=== PATIENT | male | born 1980 | race Caucasian/White ===

== ENCOUNTER 2021-03-30 14:25 | Emergency (ER) | payer OTHER, SELFPAY ==
[2021-03-30 14:31] VITALS: BP 161/98; PULSE 85; RESP 18; TEMP 37; O2SAT 97; BMI 30.1
--- NOTE | 2021-03-30 14:41 | ED_ITS ---
HPI - Wound/Laceration General: Chief Complaint: Wound/Laceration Stated Complaint: LIP INJURY Time Seen by Provider: 03/30/21 14:41 History of Present Illness: HPI narrative: Mr. Quintana is a 40-year-old gentleman without significant past medical history presents the emergency department due to lip laceration. He was referred from urgent care. Just prior to presenting to urgent care he was using a disc knife grinder and the disc broke and flung into his face. It hit isolated injury to his lip. He denies other traumatic injury. No concern over eye or head. He immediately had bleeding and applied direct pressure. He has otherwise been at his baseline health. He does have moderate intensity of pain associated with this which is aching and sharp in nature. He reports not wanting a tetanus update. No other significant changes in health, exacerbating, or relieving factors identified. Review of Systems General: Reports: 10 or more systems reviewed and unremarkable except in HPI and below Narrative: CONSTITUTIONAL: denies fever, fatigue, weakness EYES - denies pain, denies loss of vision EARS - denies ear issues. NOSE - denies congestion or rhinorrhea. THROAT - denies sore throat or difficulty swallowing. Facial laceration as noted in HPI. CARDIOVASCULAR - denies chest pain and palpitations RESPIRATORY - denies shortness of breath and cough GASTROINTESTINAL - denies abdominal pain, no nausea vomiting, no changes in bowel habits GENITOURINARY - denies dysuria or urinary frequency MUSCULOSKELETAL- denies deformity or pain SKIN - denies rashes or new changed skin lesions NEUROLOGIC - denies focal weakness or sensory changes HEMATOLOGIC/LYMPHATIC - denies easy bruising or lymphadenopathy. [facility] ED PFSH: Social History Smoking and tobacco status: never smoked Physical Exam Narrative: EXAM NARRATIVE: GENERAL/CONSTITUTIONAL - well-appearing. No acute distress. Eyes - PERRL, no conjunctival injection ENMT - Atraumatic external nose and ears. Moist mucous membranes. There is a slightly irregular laceration on the right lower lip. It approximately follows the vermilion border laterally towards the angle of the mouth not involving the angle. Additionally there is a laceration on the inside of the lip slightly more superior along the vermilion. After probing there is no definitive connection, it is possible that external laceration is secondary to reported knife grinder and internal is secondary to teeth. Generally poor dentition. NECK - supple. trachea midline CARDIOVASCULAR - regular rate and rhythm. Peripheral pulses 2+ and equal RESPIRATORY -clear to auscultation bilaterally. No retractions or accessory muscle use. ABDOMEN/GI - Nontender/Nondistended. No tenderness to percussion or evidence of peritonitis MSK - Extremities without obvious deformity or tenderness to palpation SKIN - Warm, Dry NEURO - alert and appropriately oriented. strength and sensation intact. Moves all extremities equally. PSYCH - Appropriate mood and affect HENMT: MOUTH IMAGES: 1. laceration 2. laceration (internal) Procedures Laceration Laceration 1: Site: lip Side (If applicable): right Size (cm): 3 Description: irregular and involves cornelius border Depth: simple, single layer Local Anesthetic: lidocaine 1% Amount of anesthesia used (mL): 1 Pre-repair: wound explored, irrigated extensively and deep structures intact Skin layer closed with: nylon Size (cm): 5-0 Number of sutures: 4 Laceration 2: Site: lip Side (If applicable): right Size (cm): 1 Description: linear Depth: simple, single layer Pre-repair: wound explored and irrigated extensively Skin layer closed with: nylon Size (cm): 5-0 Number of sutures: 1 Technique: simple, interrupted Nerve Block Nerve Block 1: Time out performed: Yes Local Anesthetic: bupivacaine 0.25% Amount of anesthesia used (mL): 3 Side: right Intraoral Nerve Block: other (buccal) Patient Tolerated Procedure: well Complications: inadequate anesthesia (required small amounts of additional local infiltration for small regions not controlled with nerve block) Course ED course: - Patient was seen and evaluated by me at bedside -Vital signs obtained - Initial evaluation notable for laceration as noted above -Buccal nerve block performed and laceration repaired with satisfactory appearance - Upon serial reexamination after treatment the patient was improved - Based on patient history, evaluation, labs, and imaging as interpreted the most likely cause of the patient's condition is laceration - The results of ED evaluation were discussed with the patient including prescriptions and/or symptomatic cares (if applicable) including appropriate and responsible use, followup plan, and return precautions. The patient verbalized understanding and felt safe for discharge. - Patient discharged in satisfactory condition. Vital Signs: Vital signs: Vital Signs Temperature 98.7 F 03/30/21 16:08 Pulse Rate 80 03/30/21 16:08 Respiratory Rate 16 09/02/21 16:08 Blood Pressure 134/95 03/30/21 16:08 Pulse Oximetry 95 03/30/21 16:08 MDM - Wound/Laceration Medical Records: Attestation: I reviewed the patient's medical records. Lab Data: Attestation: I reviewed the patient's lab results. Discharge Plan Discharge Patient Disposition: Home Clinical Impression: Laceration Condition: Stable Prescriptions: No Action aspirin 325 mg Tablet 325 mg PO Q4H PRN (Reason: Pain) RF: 0 ibuprofen 200 mg Tablet 600 mg PO Q4H PRN (Reason: Pain) RF: 0 Discharge Orders: Discharge ED (Routine); Ordered 03/30/21 Ordered By: Brock Moody Referrals: Jory Garcia MD [Primary Care Provider] - Discharge Diet: Usual diet Discharge Activity: Resume usual activity Patient Instructions: Suture Care (ED), Laceration (ED) Activity Restrictions/Additional Instructions: Thank you for visiting the emergency department. You were seen and evaluated for laceration. This was repaired at bedside. You have one stitch on the inside of your lip and 4 on the outside. These need to be removed in 7 days. You may use [id number] medications for symptom treatment. Please return to the emergency department for signs of infection or anything else that you are concerned about and feel needs emergency department evaluation. Coding Level of Care Code ED Door Frame Assembler Machine for Benjamín Barraza
[2021-03-30 14:52] VITALS: BP 141/96; PULSE 74; RESP 16; TEMP 37.1; O2SAT 95
[2021-03-30 16:08] VITALS: BP 134/95; PULSE 80; RESP 16; TEMP 37.1; O2SAT 95
== END 2021-03-30 16:11 | disposition home or self-care (01) ==
PROVIDERS: Emergency Provider Emergency Medicine; PCP Family Medicine
DX: S01.511A Laceration without foreign body of lip, initial encounter (principal); W20.8XXA Other cause of strike by thrown, projected or falling object, initial encounter
CPT/HCPCS: 12013; 99281

== ENCOUNTER 2023-07-20 15:55 | Emergency (ER) | payer OTHER, SELFPAY ==
[2023-07-20 16:00] VITALS: BP 146/92; PULSE 96; RESP 18; TEMP 36.6; O2SAT 95; BMI 29.9
[2023-07-20] MEDS: lidocaine-epi 1% 20 mL INJ INJECTION (16:32)
[2023-07-20] MEDS: doxycycline 100 mg Tablet PO (17:53)
--- NOTE | 2023-07-20 23:54 | ED_ITS ---
HPI - Wound/Laceration General: Chief Complaint: Wound/Laceration Stated Complaint: laceration right leg Time Seen by Provider: 07/20/23 16:18 Source: patient Mode of arrival: ambulatory Limitations: no limitations History of Present Illness: Patient presents emergency department today sent by urgent care for evaluation treatment of laceration to his right mid seo. Patient states that he was working on a dog kennel when he accidentally impacted his right anterior mid seo with a grinder set up operator surface. He went to the urgent care where they determined he needed multilayer suturing and they did not have the dissolvable suture material. Patient is not sure of his last tetanus immunization but is declining tetanus immunization today. Patient is not on any blood thinners. Bleeding has been easily controlled with direct pressure. He has no deficit in plantar or dorsiflexion of the right foot. Review of Systems General: Reports: 10 or more systems reviewed and unremarkable except in HPI and below PFSH ED PFSH: Social History Smoking and tobacco/nicotine status: never used tobacco/nicotine Physical Exam Const: COMMON NORMALS: no acute distress, patient oriented x3 and alert HENMT: COMMON NORMALS: normocephalic, atraumatic and hearing grossly normal bilaterally HEAD & SCALP: normocephalic and atraumatic Eye: COMMON NORMALS: Equal, round and reactive pupils present, EOMs intact bilaterally and conjunctivae normal CONJUNCTIVA: Yes conjunctivae normal PUPIL: Yes Equal, round and reactive pupils present Neck/C-Spine: COMMON NORMALS: full ROM and no JVD Lymph: LYMPHATIC: no lymphadenopathy noted Resp: COMMON NORMALS: normal respiratory effort, No retractions and No use of accessory muscles Cardio: COMMON NORMALS: no JVD and regular rate RATE: regular rate Extremity: NARRATIVE EXTREMITY EXAM: Patient is independently ambulatory and weightbearing here in the emergency department. Patient has plantarflexion and dorsiflexion of the right foot without any deficit or drop. Neuro: COMMON NORMALS: patient oriented x3 SENSORIUM/ORIENTATION: Yes alert Psych: COMMON NORMALS: mental status grossly normal, Normal thought process present, cooperative and normal affect THOUGHT PROCESS: Normal thought process present Skin: COMMON NORMALS: no rashes or lesions noted and turgor normal NARRATIVE SKIN EXAM: Patient has a large laceration to the right anterior mid seo approximately 5 cm in length and wound edge separation approximately 2 cm. It is full-thickness. After anesthesia, full examination of the wound does show that there is interference to the fascial layer and there is some muscle exposure. It is heavily contaminated. GENERAL SKIN EXAM: no rashes or lesions noted and turgor normal Procedures Laceration Laceration 1: Site: lower extremity (Mid seo, anterior) Side (If applicable): right Size (cm): 5 Description: linear and contaminated Depth: involves muscle layer Local Anesthetic: lidocaine 1% and with epi Amount of anesthesia used (mL): 10 Pre-repair: wound explored, irrigated extensively (500 cc normal saline spray mixed with Betadine) and extensive debridement Skin layer closed with: nylon Size (cm): 4-0 Number of sutures: 10 Technique: simple, interrupted Subcutaneous layer closed with: vicryl Size: 4-0 Number of sutures: 1 Technique: running Course Vital Signs: Vital signs: Vital Signs Temperature 98 F 07/20/23 16:00 Pulse Rate 96 07/20/23 16:00 Respiratory Rate 18 07/20/23 16:00 Blood Pressure 146/92 07/20/23 16:00 Pulse Oximetry 95 07/20/23 16:00 Oxygen Delivery Me thod Room Air 07/20/23 16:00 MDM - Wound/Laceration Medical Decision Making Patient declines a tetanus immunization today. Patient's wound was anesthetized using 1% lidocaine with epinephrine which resulted in good analgesia. Patient was able to tolerate vigorous irrigation with 500 cc saline solution mixed with Betadine. Also, manual debridement of foreign particulate using pickups and curved Kellys performed. Patient has significant wound edge separation and we did place a subcu running suture which resulted in significantly improved wound edge approximation. Because of that, I was able to place simple interrupted's which resulted in fantastic wound edge reapproximation. During the debridement I did notice the wound extended past the fascial layer and exposed some injury to the muscle. I did have Dr. Nguyễn come and examine the wound and demonstrated range of motion to the foot without deficit. He indicated wound should be good to go ahead and finish cleaning and repair. Patient's wound was covered with Telfa and wrapped with Coban. He was given strict wound care instructions for twice a day wound cleaning and continued bandaging to prevent catching and snagging of his sutures. Patient was given a first dose of antibiotic here in the emergency department with the rest being sent to the pharmacy to be picked up and continued as prescribed. Patient is to be seen and reevaluated for a wound check for any concerns of swelling, redness, or draining. Stitches need to be removed in approximately 10 days by his primary care doctor. Patient should be seen and reevaluated for a wound check for any acute concerns. Patient verbalizes understanding and agreement to treatment plan. Differential Diagnosis Likely laceration; Unlikely abscess, abrasion or avulsion of skin No radiology studies performed this visit Discharge Plan Discharge Patient Disposition: Home Clinical Impression: Laceration of leg Qualifiers: Encounter type: initial encounter Laterality: right Qualified Code(s): S81.811A - Laceration without foreign body, right lower leg, initial encounter Condition: Stable Prescriptions: New doxycycline hyclate 100 mg tablet 100 mg PO BID 10 Days Qty: 20 0RF Discharge Orders: Discharge ED (Routine); Ordered 07/20/23 Ordered By: Crystal Fragoso Referrals: Jory Garcia MD [Primary Care Provider] - Discharge Diet: Usual diet Discharge Activity: Limit activity as instructed Patient Instructions: Care For Your Stitches (ED), Laceration (ED) Activity Restrictions/Additional Instructions: We were able to repair the laceration to your right lower leg. We also irrigated extensively however, with irrigation and cleaning we were able to see the full extent of the wound. Unfortunately, does not violate the fascial layer which has caused a mild injury to the underlying musculature. However, you still have complete mobility in your lower leg and I believe you will heal without difficulty. You have a running layer internally which will dissolve over the next 2 weeks. However, you have 10 nonabsorbable sutures which need to be removed by primary care provider in approximately 10 days. Wash your wound twice a day with warm water and a mild soap. Keep it covered to keep the sutures from snagging and to prevent the wound from becoming wet or soiled. We are putting you on a prophylactic course of antibiotics due to the extent and depth of the wound you received. However, if you have concerns for signs of infection including sudden swelling, redness, or draining of a thick green or yellow material we want you to be seen and reevaluated. Coding Level of Care Code ED Landscape Manager for Benjamín Barraza
== END 2023-07-20 18:12 | disposition home or self-care (01) ==
PROVIDERS: Emergency Provider Physician Assistant; PCP Family Medicine
DX: S81.811A Laceration without foreign body, right lower leg, initial encounter (principal); W29.8XXA Contact with other powered hand tools and household machinery, initial encounter
CPT/HCPCS: 12032; 99283